=== PATIENT | female | born 1975 | race Caucasian/White ===

== ENCOUNTER 2020-08-21 12:31 | Emergency (ER) | payer OTHER ==
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
[2020-08-21 14:08] VITALS: BP 156/98; TEMP 97.7; O2SAT 100
== END 2020-08-21 13:48 | disposition home or self-care (01) ==
LOC: ER 12:31
DX: R07.9 Chest pain, unspecified (principal); V49.49XA Driver injured in collision with other motor vehicles in traffic accident, initial encounter
CPT/HCPCS: 71045; 99283